=== PATIENT | female | born 1955 | race Caucasian/White ===

== ENCOUNTER → 2019-07-02 | Outpatient (CLI) | payer OTHER ==
[~2019-07-02] MED LIST: NORCO 5-325 TA1 EACH PO; [UNRECOGNIZED DRUG - REMARK]
== END ==
LOC: M.RAD 10:26
DX: Z12.31 Encounter for screening mammogram for malignant neoplasm of breast (principal)

== ENCOUNTER → 2019-07-16 | Outpatient (CLI) | payer OTHER | LOC: M.CT 07:45 | DX: Z13.6 Encounter for screening for cardiovascular disorders (principal); E78.00 Pure hypercholesterolemia, unspecified; I25.10 Atherosclerotic heart disease of native coronary artery without angina pectoris ==

== ENCOUNTER 2020-03-23 12:06 | Emergency (ER) | payer MEDICARE ==
[~2020-03-23] VITALS: Ht 165.1 cm; Wt 58.1 kg
[2020-03-23] MEDS ORDERED: ZESTRIL40 MG PO (12:41)
[2020-03-23] MEDS ORDERED: CRESTOR10 MG PO (12:42)
[2020-03-23] MEDS ORDERED: LOPRESSOR50 MG PO (12:42)
[2020-03-23] MEDS ORDERED: METFORMIN HCL500 M3 PO (12:42)
[2020-03-23 12:52] LABS: URINE BLOOD 3+ (Negative); URINE CLARITY CLEAR; URINE COLOR YELLOW; URINE GLUCOSE-RANDOM TRACE (Negative); URINE KETONES NEGATIVE (Negative); URINE PROTEIN 3+ (Negative)
[2020-03-23] MEDS ORDERED: KEFLEX500 M1 PO (12:52)
[2020-03-23] MEDS ORDERED: PHENAZOPYRIDIN200 M2 PO (12:52)
[2020-03-23 12:54] LABS: URINE BILIRUBIN 1+ (Negative); URINE LEUKOCYTES-REFLEX 2+ (Negative); URINE NITRITE-REFLEX POSITIVE (Negative)
[2020-03-23 12:58] LABS: CASTS None Seen /LPF (None Seen); CRYSTALS None Seen /LPF (None Seen); MUCUS None Seen strn/LPF (None Seen); SQUAMOUS 0-3 Few /LPF (0-3)
[2020-03-23 13:10] VITALS: BP 204/95
== END 2020-03-23 13:11 | disposition home or self-care (01) ==
LOC: M.ERS 12:06
PROVIDERS: Physician Assistant
DX: N39.0 Urinary tract infection, site not specified (principal); I10 Essential (primary) hypertension; E11.9 Type 2 diabetes mellitus without complications; E78.00 Pure hypercholesterolemia, unspecified; Z88.5 Allergy status to narcotic agent

== ENCOUNTER → 2021-03-22 | Outpatient (CLI) | payer MEDICARE ==
[~2021-03-22] MED LIST changes: +CRESTOR10 MG PO; +KEFLEX500 M1 PO; +LOPRESSOR50 MG PO; +METFORMIN HCL500 M3 PO; +PHENAZOPYRIDIN200 M2 PO; +ZESTRIL40 MG PO
== END ==
LOC: M.RAD 08:40
PROVIDERS: ATTEND Family Medicine
DX: Z12.31 Encounter for screening mammogram for malignant neoplasm of breast (principal)